=== PATIENT | female | born 1990 | race Caucasian/White ===

== ENCOUNTER 2020-02-24 04:38 | Inpatient (IN) ==
[2020-02-24] MEDS ORDERED: ONDANSETRON 4 MG/2 ML VIAL IV PRN ×2 (04:53→19:30)
[2020-02-24] MEDS ORDERED: BUTORPHANOL 2 MG/ML VIAL IV PRN (04:53)
[2020-02-24] MEDS ORDERED: MEPERIDINE 50 MG/1 ML VIAL IV PRN (04:53)
[2020-02-24] MEDS ORDERED: OXYTOCIN/LR 20 UNIT/1,000 ML BAG IV SCH (05:00)
[2020-02-24] MEDS ORDERED: LACTATED RINGERS 1,000 ML IV SCH (05:00)
[2020-02-24 05:34] LABS: Basophils % 0.3 % (0.0-0.8); Eosinophils # 0.1 10*3/uL (0.0-0.87); Eosinophils % 1.2 % (0.00-10.9); Hematocrit 35.2 VOL% (35.7-47.0); Hemoglobin 11.8 GM/DL (12.0-16.0); Immature Granulocytes % 0.6 %; Immature Granulocytes Absolute 0.06 #; Lymphocytes # 3.2 10*3/uL (1.4-4.0); Lymphocytes % 34.3 % (21.3-54.2); Mean Corpuscular HGB Conc 33.5 GM/DL (32-36); Mean Corpuscular Volume 94.9 FL (87-102); Mean Platelet Volume 10.4 FL (9.6-12.0); Monocytes % 8.8 % (1.7-12.7); Neutrophils % 54.8 % (38.7-73.9); Platelet Count 227 T/CUMM (130-400); Red Blood Count 3.71 MC/CUMM (3.8-5.5); Red Cell Distribution Width 12.7 % (9.3-17.3); White Blood Count 9.4 T/CUMM (4-12)
[2020-02-24] MEDS ORDERED: AMPICILLIN INJ 2,000 MG in SODIUM CHLORIDE 0.9% 100 ML IV ONE (05:35)
[2020-02-24] MEDS ORDERED: AMPICILLIN 2,000 MG VIAL ONE (05:36)
[2020-02-24] MEDS ORDERED: SODIUM CHLORIDE 0.9% 100 ML IV ONE (05:37)
[2020-02-24 05:51] LABS: Alanine Aminotransferase 15 U/L (13-56); Albumin 2.5 G/DL (3.4-5.0); Alkaline Phosphatase 148 U/L (45-117); Aspartate Amino Transferase 14 U/L (0-37); Bilirubin,Total < 0.39 MG/DL (0.2-1.0); Blood Urea Nitrogen 9 MG/DL (7-18); Calcium 8.9 MG/DL (8.5-10.1); Estimated Glom Filtration Rate 115 ML/MIN; Glucose 87 MG/DL (74-106); Total Protein 6.6 G/DL (6.4-8.3)
[2020-02-24] MEDS ORDERED: hydrOXYzine HCL 25 MG/1 ML VIAL IM PRN (08:08)
[2020-02-24] MEDS ORDERED: PROMETHAZINE 25 MG/1 ML VIAL IM ONE (08:08)
[2020-02-24] MEDS ORDERED: CITRIC ACID/SODIUM CITRATE 30 ML UDCUP PO ONE (08:08)
[2020-02-24] MEDS ORDERED: NALOXONE 0.4 MG/ML VIAL IV PRN (08:08)
[2020-02-24] MEDS ORDERED: diphenhydrAMINE 50 MG/1 ML VIAL IV PRN ×2 (08:08)
[2020-02-24] MEDS ORDERED: ePHEDrine 50 MG/ML AMP IV PRN (08:08)
[2020-02-24] MEDS ORDERED: ONDANSETRON 4 MG/2 ML VIAL IV ONE (08:08)
[2020-02-24] MEDS ORDERED: LACTATED RINGERS 1,000 ML IV ONE (08:08)
[2020-02-24] MEDS ORDERED: FAMOTIDINE 20 MG/2 ML VIAL IV ONE (08:08)
[2020-02-24] MEDS: fentaNYL 2 MCG/ROPIV 0.2% EPID 100 ML EPIDURAL SCH ×2 (09:05→17:13)
[2020-02-24 10:01] LABS: Apearance,Urine CLEAR (Clear); Bilirubin,Urine Negative (Negative); Blood, Urine Negative (Negative); Glucose,Urine (UA) Negative (Negative); Ketones,Urine Negative (Negative); Nitrite,Urine Negative (Negative); Protein,Urine Negative; Urine Color Colorless (Yellow); Urine Specific Gravity 1.005 (1.001-1.035); Urine Urobilinogen < 2.0 EU/DL (0.2-1.0); WBC,Urine <1 /HPF (0-6)
[2020-02-24] MEDS: AMPICILLIN INJ 1,000 MG in SODIUM CHLORIDE 0.9% 100 ML IV SCH ×3 (10:11→18:20)
[2020-02-24] MEDS ORDERED: TRANEXAMIC ACID 1,000 MG/10 ML VIAL ONE (13:30)
[2020-02-24] MEDS ORDERED: METHYLERGONOVINE 0.2 MG/1 ML AMP ONE (13:30)
[2020-02-24] MEDS ORDERED: miSOPROStoL 200 MCG TABLET ONE (13:30)
[2020-02-24] MEDS ORDERED: CARBOPROST TROMETHAMINE 250 MCG/ML AMP IM ONE (13:31)
[2020-02-24] MEDS ORDERED: LIDOCAINE 1% 50 ML VIAL ONE (13:34)
[2020-02-24] MEDS ORDERED: HYDROCORTISONE 2.5% RECTAL CREAM 30 GM TUBE TOP PRN (19:30)
[2020-02-24] MEDS ORDERED: ACETAMINOPHEN 325 MG TABLET PO PRN (19:30)
[2020-02-24] MEDS ORDERED: BENZOCAINE 20%/MENTHOL 0.5% SPRAY 56 GM CAN TOP PRN (19:30)
[2020-02-24] MEDS ORDERED: OXYTOCIN/LR 20 UNIT/1,000 ML BAG IV ONE (19:30)
[2020-02-24] MEDS ORDERED: WITCH HAZEL PADS 100/JAR TOP PRN (19:30)
[2020-02-24] MEDS ORDERED: GLUCAGON 1 MG VIAL IM PRN ×2 (19:30→19:32)
[2020-02-24] MEDS ORDERED: DIPH/TET/ACEL PERT BOOSTER VACCINE 0.5 ML VIAL IM ONE (19:30)
[2020-02-24] MEDS ORDERED: BISACODYL 10 MG SUPP RECTAL PRN (19:30)
[2020-02-24] MEDS ORDERED: DEXTROSE 10% 250 ML BAG IV PRN (19:30)
[2020-02-24] MEDS ORDERED: MEASLES/MUMPS/RUBELLA VACCINE 0.5 ML VIAL SUBCUT ONE (19:30)
[2020-02-24] MEDS ORDERED: LANOLIN 50% CREAM 0.3 OZ TUBE TOP PRN (19:30)
[2020-02-24] MEDS ORDERED: oxyCODONE/ACETAMINOPHEN 5-325 MG TABLET PO PRN ×2 (19:30)
[2020-02-24] MEDS ORDERED: RHO(D) IMMUNE GLOBULIN 300 MCG SYRINGE IM ONE (19:30)
[2020-02-24] MEDS ORDERED: DEXTROSE 50% 25 GM/50 ML VIAL IV PRN (19:32)
[2020-02-24 19:40] LABS: Cord Arterial Blood HCO3 20.2 MMOL/L
[2020-02-24 19:44] LABS: Cord Venous Blood HCO3 19.3 MMOL/L; Cord Venous Blood PCO2 39.9 MMHG; Cord Venous Blood PO2 29.1
[2020-02-24 20:25] LABS: Hematocrit 35.5 VOL% (35.7-47.0); Hemoglobin 11.8 GM/DL (12.0-16.0)
[2020-02-24] MEDS: IBUPROFEN 800 MG TABLET PO PRN (21:33)
[2020-02-25] MEDS ORDERED: INSULIN REGULAR 100 UNIT/ML SUBCUT SCH
[2020-02-25] MEDS: DOCUSATE SODIUM 100 MG CAPSULE PO SCH ×3 (00:10→21:07)
[2020-02-25 07:12] LABS: Basophils % 0.2 % (0.0-0.8); Eosinophils % 0.1 % (0.00-10.9); Hematocrit 29.5 VOL% (35.7-47.0); Hemoglobin 9.9 GM/DL (12.0-16.0); Immature Granulocytes % 0.7 %; Immature Granulocytes Absolute 0.12 #; Lymphocytes # 2.5 10*3/uL (1.4-4.0); Lymphocytes % 13.9 % (21.3-54.2); Mean Corpuscular HGB Conc 33.6 GM/DL (32-36); Mean Corpuscular Volume 93.9 FL (87-102); Mean Platelet Volume 10.6 FL (9.6-12.0); Neutrophils % 80.1 % (38.7-73.9); Platelet Count 215 T/CUMM (130-400); Red Blood Count 3.14 MC/CUMM (3.8-5.5); Red Cell Distribution Width 12.7 % (9.3-17.3); White Blood Count 17.7 T/CUMM (4-12)
[2020-02-25] MEDS: INSULIN REGULAR 100 UNIT/ML SUBCUT SCH ×4 (07:57→21:26)
[2020-02-25] MEDS: FERROUS SULFATE 325 MG TABLET PO SCH ×2 (10:18→21:07)
[2020-02-25] MEDS: IBUPROFEN 800 MG TABLET PO PRN (21:07)
[2020-02-26 07:23] VITALS: BP 101/55
[2020-02-26] MEDS: FERROUS SULFATE 325 MG TABLET PO SCH (09:10)
[2020-02-26] MEDS: DOCUSATE SODIUM 100 MG CAPSULE PO SCH (09:11)
== END 2020-02-26 12:20 | disposition home or self-care (01) | DRG 807 ==
LOC: N.LDOUT 04:38 → N.LD 04:45 → N.OB 22:46
PROVIDERS: ADMIT Obstetrics & Gynecology; ATTEND Obstetrics & Gynecology